=== PATIENT | female | born 1970 | race Caucasian/White ===

== ENCOUNTER 2022-05-22 12:15 | Observation (INO) | payer OTHER, SELFPAY ==
[2022-05-22] VITALS (69 sets, daily range): BP systolic 104–143; BP diastolic 61–85; PULSE 51–73; RESP 10–22; TEMP 36.6–37; O2SAT 94–99
--- NOTE | 2022-05-22 | DI.CT_ITS ---
Exam(s) CT CHEST PE CTA EXAM: CT CHEST PE CTA CLINICAL HISTORY: chest pain. TECHNIQUE: Imaging Protocol: Axial CT angiography was performed with multi-slice acquisition and mu lti-planar reconstructions as well as axial, coronal and sagittal MIP reconstructions. CONTRAST MATERIAL: Intravenous: Omnipaque 350 Contrast volume:100 ml COMPARISON: CR XR CHEST 2V PA LATERAL from 05/22/2022 FINDINGS: Pulmonary Arteries: No evidence of filling defect to suggest pulmonary emboli. Tracheobronchial tree: Patent where visualized. Small posterior upper tracheal diverticulum. Mediastinum and Ashley: No dominant adenopathy or fluid collection. Pulmonary parenchyma: No consolidation or dominant measurable mass. Pleura: No effusion or pneumothorax. Heart: The heart is not dilated. No coronary artery calcifications are seen. Aorta: Thoracic aorta non-dilated. No aneurysm. No dissection. Upper abdomen: Status post cholecystectomy. Unremarkable. Bones: Unremarkable for age. Tubes, Catheters, and Lines: None IMPRESSION: No evidence of pulmonary embolism or other acute abnormality.. RADIATION DOSE DELIVERED: 611.94mGy.cm Total DLP DATA REPOSITORY: All CT scans at this facility are submitted to the National Radiology Data Registry (NRDR) Dose Index Registry (DIR) with the [employer] (A[employer]). RADIATION OPTIMIZATION: All CT scans at this facility use at least one of these dose optimization te chniques: automated exposure control; mA and/or kV adjustment per patient size (includes targeted exa ms where dose is matched to clinical indication); or iterative reconstruction.
--- NOTE | 2022-05-22 12:15 | RT.EKG_ITS ---
APPROVED REPORT Exam: Resting ECG Reason for Exam: chest pain Patient Location: E HR:62 bpm ECG Measurements Heart Rate 62 AXIS WA 163 P 34 QRSd 88 QRS 2 QT 395 T 76 QTc 401 Conclusion Sinus rhythm...normal P axis, V-rate 60- 99
--- NOTE | 2022-05-22 12:45 | DI.RAD_ITS ---
Exam(s) XR CHEST 2V PA LATERAL EXAM: XR CHEST 2V PA LATERAL CLINICAL HISTORY: left chest pain TECHNIQUE: 2D digital imaging was performed. COMPARISON: No exams were available for comparison FINDINGS: The heart is not enlarged. The lungs are clear and well expanded. No pleural effusion seen. Mediastin al contours appear intact. IMPRESSION: Normal chest. RADIATION DOSE DELIVERED: Total DLP
--- NOTE | 2022-05-22 12:54 | ED.GENADUL_ITS ---
Discharge Plan Disposition Patient Disposition: [facility] INPATIENT Condition: Stable Discharge Details Chief Complaint: Chest Pain Clinical Impression: Chest pain Admit Date/Time: 05/22/22 17:53 Admit Provider: Mike Valdes Attending Provider: Mike Valdes Primary Care Provider: Sasha,Local ED Provider: Montez Odom Discharge Instructions Activity:: Activity as Tolerated Equipment/Supplies:: No Equipment Needed Diet:: low fat/heart healthy Discharge Orders Discharge Orders: Discharge Order (Routine); Ordered 05/23/22 Ordered By: Mike Valdes Discharge Data Discharge Date/Time-TO BE ENTERED AT DEPARTURE: 05/22/22 18:43 Medical Decision Making 1300 --51-year-old female here with left-sided chest pain that started with exertional activity and has persisted as a mild ache, with associated left arm heaviness and neck discomfort as well as nausea. Patient is hemodynamically stable. Concern for ACS. EKG was reviewed and interpreted by me: Please see report, sinus rhythm 62 bpm, no STEMI, nondiagnostic. Plan to check troponin and trend. I will give aspirin and sublingual nitroglycerin. --On reassessment, patient notes chest pain resolved. Patient notes pain was improving prior to nitroglycerin and aspirin but now is gone. -- Chest x-ray was reviewed and interpreted by radiology: Normal chest 1733 --initial troponin and delta troponin 3 hours. Normal, unchanged. Repeat EKG reviewed interpreted by me: Please see report, sinus rhythm 55 bpm, no significant change from prior EKG. Unfortunately patient has had return of chest discomfort while she has been here. She has intermittent ache in her left chest at rest. Chest pain is not reproducible with movements and not pleuritic. I am concerned about unstable angina. Plan for hospitalization for serial troponins and continue cardiac monitoring. Lab Data Lab results reviewed: Yes I reviewed the patient's lab results. Labs: Laboratory Tests Range/Units 05/22/22 05/22/22 05/22/22 12:40 12:40 13:05 WBC (4.4-10.8) 10^3/uL 5.18 RBC (3.93-5.22) 10^6/uL 4.72 Hgb (11.2-15.7) g/dL 14.7 Hct (36.0-46.0) % 40.8 MCV (80-95) fL 86 MCH (27.0-33.0) pg 31.1 MCHC (32.0-36.0) % 36.0 RDW (11.7-14.6) % 12.4 Plt Count (130-400) 10^3/uL 208 MPV (8.0-11.0) fL 11.0 Immature Gran % 0.6 Neutrophils % 50.5 Lymphocytes % 35.1 Monocytes % 6.0 Eosinophils % 6.6 Basophils % 1.2 Nucleated RBC % (0.0-0.3) % 0.0 Absolute Neutrophils (1.2-6.7) 10^3/uL 2.62 Absolute Lymphocytes (1.2-3.4) 10^3/uL 1.82 Absolute Monocytes (0.1-0.8) 10^3/uL 0.31 Absolute Eosinophils (0.0-0.7) 10^3/uL 0.34 Absolute Basophils (0.0-0.2) 10^3/uL 0.06 Sodium (136-145) mmol/L 138 Potassium (3.5-5.1) mmol/L 3.9 Chloride (98-107) mmol/L 104 Carbon Dioxide (21.0-32.0) mmol/L 27.0 Anion Gap (3-11) mmol/L 7.0 BUN (7-18) mg/dL 14 Creatinine (0.55-1.02) mg/dL 0.8 Est GFR (CKD-EPI 2020) (mL/min/1.73m2) 88.60 Glucose (74-106) mg/dL 112 H Calcium (8.5-10.1) mg/dL 9.1 Total Bilirubin (0.2-1.0) mg/dL 0.5 AST (15-37) U/L 15 ALT (14-59) U/L 25 Alkaline Phosphatase (46-116) U/L 70 Troponin I (<or=60) ng/L < 50 Total Protein (6.4-8.2) g/dL 7.4 Albumin (3.4-5.0) g/dL 4.1 COVID-19 Source Nasal/Nares SARS-CoV-2 (PCR) (Negative) Negative Range/Units 05/22/22 15:45 WBC (4.4-10.8) 10^3/uL RBC (3.93-5.22) 10^6/uL Hgb (11.2-15.7) g/dL Hct (36.0-46.0) % MCV (80-95) fL MCH (27.0-33.0) pg MCHC (32.0-36.0) % RDW (11.7-14.6) % Plt Count (130-400) 10^3/uL MPV (8.0-11.0) fL Immature Gran % Neutrophils % Lymphocytes % Monocytes % Eosinophils % Basophils % Nucleated RBC % (0.0-0.3) % Absolute Neutrophils (1.2-6.7) 10^3/uL Absolute Lymphocytes (1.2-3.4) 10^3/uL Absolute Monocytes (0.1-0.8) 10^3/uL Absolute Eosinophils (0.0-0.7) 10^3/uL Absolute Basophils (0.0-0.2) 10^3/uL Sodium (136-145) mmol/L Potassium (3.5-5.1) mmol/L Chloride (98-107) mmol/L Carbon Dioxide (21.0-32.0) mmol/L Anion Gap (3-11) mmol/L BUN (7-18) mg/dL Creatinine (0.55-1.02) mg/dL Est GFR (CKD-EPI 2020) (mL/min/1.73m2) Glucose (74-106) mg/dL Calcium (8.5-10.1) mg/dL Total Bilirubin (0.2-1.0) mg/dL AST (15-37) U/L ALT (14-59) U/L Alkaline Phosphatase (46-116) U/L Troponin I (<or=60) ng/L < 50 Total Protein (6.4-8.2) g/dL Albumin (3.4-5.0) g/dL COVID-19 Source SARS-CoV-2 (PCR) (Negative) HPI General Mode of arrival: ambulatory . Date/Time Provider Initiated Documentation: 05/22/22 12:21 . Limitations to Documentation: no limitations . Information obtained by: patient . HPI Narrative: 51-year-old female presents with chief complaint of chest pain. Patient notes she was lifting a heavy object and had 3 sharp episodes of left-sided chest pain. This occurred around 10 AM this morning. Sharp pain resolved and since the episode she has had a constant mild dull chest discomfort in her left chest. She also notes some heaviness in her left arm. She also states she had some discomfort in his left neck. No modifiers. She has associated nausea in route to the hospital. No leg swelling or calf pain. Related Data Home Medications Medication Instructions Recorded Confirmed Quynh's wort 300 mg capsule 600 mg PO HS 05/22/22 05/22/22 acetaminophen 500 mg capsule 500 mg PO Q6H PRN 05/22/22 05/22/22 cetirizine 10 mg tablet (Zyrtec) 10 mg PO HS 05/22/22 05/22/22 diphenhydramine HCl 50 mg capsule 50 mg PO QHS PRN 05/22/22 05/22/22 flaxseed oil 1,000 mg capsule 1,000 mg PO HS 05/22/22 05/22/22 guaifenesin 600 mg tablet, 600 mg PO Q12H 05/22/22 05/22/22 extended release 12 hr (Mucinex) ibuprofen 200 mg tablet (Advil) 200 mg PO Q6H PRN 05/22/22 05/22/22 multivitamin with minerals 2 tab PO QHS 05/22/22 05/22/22 (Hair,Skin and Nails tablet) Allergies Allergy/AdvReac Type Severity Reaction Status Date / Time animal dander Allergy Intermediate Other (See Unverified 05/22/22 12:54 Comment) oxycodone AdvReac Severe Nausea Unverified 05/22/22 12:54 codeine AdvReac Mild Nausea Unverified 05/22/22 12:54 Seasonal Allergy Intermediate Other (See Uncoded 05/22/22 12:54 Comment) General Stated Complaint: Chest Pain ADITHYA: 3 Review of Systems All systems reviewed & are unremarkable except as noted in HPI and below Constitutional Constitutional: Denies fever(s) Cardiovascular Cardiovascular: Reports chest pain and Denies dyspnea Respiratory Respiratory: Denies dyspnea PFSH All Active Problems (Updated 05/24/22 @ 20:33 by Montez Odom MD) Chest pain (Acute) Medical History Degenerative disc disease, lumbar Dysfunctional uterine bleeding Surgical History H/O lumbar discectomy History of endometrial ablation Family History Father Dementia Mother Pulmonary embolism Social History Smoking/Tobacco Use Status: Never Smoking risk assessment performed?: Yes Alcohol Intake: current Alcohol Intake frequency: a few times a week Alcohol type: hard liquor Drug use: Never Substance use type: does not use History History 1 Para 1 Hx # Term Pregnancies Multiple births Hx # Pregnancies Ectopic pregnancies AB induced Hx Number of Living Children AB spontaneous Exam Const General: cooperative and no acute distress HENMT Mouth: moist mucous membranes Eyes Conjunctivae: normal conjunctivae Sclera: normal sclerae Neck Neck: trachea midline and supple Chest Chest: no tenderness Resp Auscultation: clear to auscultation bilaterally, no rales, no rhonchi and no wheezes Cardio Rate: regular rate and not tachycardic Rhythm: regular rhythm Heart Sounds: no gallops, no murmurs and no rubs GI Palpation: soft, not firm, no guarding, no masses, not rigid and nontender Skin General skin exam: no rashes or lesions noted Neuro General: patient alert, patient awake and tone normal Extrem General: no calf tenderness and no edema Psych Appearance: grossly normal Mental Status: mental status grossly normal Speech and Movement: speech and movement normal Course Vital Signs Vital signs: Vital Signs Temperature 36.6 C 05/22/22 12:40 Pulse 71 05/22/22 12:40 Respiratory Rate 20 05/22/22 12:40 Blood Pressure 140/72 05/22/22 12:40 Pulse Oximetry 99 05/22/22 12:40 Temperature 36.6 C 05/22/22 12:40 Temperature Source Tympanic 05/22/22 12:40 Pulse 71 05/22/22 12:40 Respiratory Rate 16 05/22/22 12:44 Respiratory Effort Non-Labored 05/22/22 12:44 Respiratory Depth Normal 05/22/22 12:44 Respiratory Pattern Normal 05/22/22 12:44 Blood Pressure 140/72 05/22/22 12:40 Blood Pressure Position Sitting 05/22/22 12:40 Pulse Oximetry 99 05/22/22 12:40 Oxygen Delivery Method Room Air 05/22/22 12:40 Oxygen Flow Rate 0 05/22/22 12:40 Pain Level 3 05/22/22 12:40 Comment 05/22/22 12:40 PAWSS Have you Been Recently Intoxicated or Drunk Within the Last 30 days?: No Have you Ever Experienced Previous Episodes of Alcohol Withdrawal?: No Have you ever Experienced Withdrawal Seizures?: No Have you ever Experienced Delirium Tremens(DT)s?: No Have you ever undergone Alcohol Rehabilitation Treatment (i.e, inpt ot outpatient treatment programs)?: No Have you ever Experienced Blackouts?: No Have you ever Combined Alcohol with other Downers within the last 90 days?: No Have you ever Combined Alcohol with any other Substance of Abuse during the last 90 days?: No Positive Blood Alcohol level on Presentation? [PCS.BAL]: Unable to Obtain Evidence of Increased Autonomic Activity (i.e. HR>120, tremor, sweating, agitation, nausea)?: No Result: 0
[2022-05-22] MEDS: Aspirin 81 MG CHEW 324 MG CH (13:13)
[2022-05-22] MEDS: nitroGLYcerin 0.4 MG TAB SL (13:13)
[2022-05-22 13:18] LABS: Abs Immature Grans 0.03 10^3/uL (0.0-0.06); Absolute Basophil Count 0.06 10^3/uL (0.0-0.2); Absolute Eosinophil Count 0.34 10^3/uL (0.0-0.7); Absolute Lymphocyte Count 1.82 10^3/uL (1.2-3.4); Absolute Monocyte Count 0.31 10^3/uL (0.1-0.8); Absolute Neutrophil Count 2.62 10^3/uL (1.2-6.7); Basophils % 1.2; Eosinophils % 6.6; HCT 40.8 % (36.0-46.0); HGB 14.7 g/dL (11.2-15.7); Immature Grans % 0.6; Lymphocytes % 35.1; MCH 31.1 pg (27.0-33.0); MCV 86 fL (80-95); Neutrophils % 50.5; Platelet Count 208 10^3/uL (130-400); RBC 4.72 10^6/uL (3.93-5.22); RDW 12.4 % (11.7-14.6); RDW-SD 38.9 fL; WBC 5.18 10^3/uL (4.4-10.8)
[2022-05-22 13:37] LABS: ALT 25 U/L (14-59); AST 15 U/L (15-37); Albumin 4.1 g/dL (3.4-5.0); Alkaline Phosphatase 70 U/L (46-116); BUN 14 mg/dL (7-18); Bilirubin, Total 0.5 mg/dL (0.2-1.0); CREATININE 0.8 mg/dL (0.55-1.02); Calcium 9.1 mg/dL (8.5-10.1); Chloride 104 mmol/L (98-107); Glucose 112 mg/dL (74-106); Potassium 3.9 mmol/L (3.5-5.1); Sodium 138 mmol/L (136-145); Total Protein 7.4 g/dL (6.4-8.2); Troponin I < 50 ng/L (<or=60)
[2022-05-22 14:01] LABS: Source Nasal/Nares
[2022-05-22 14:03] LABS: COVID-19 PCR Negative (Negative)
--- NOTE | 2022-05-22 14:50 | NUR.NOTE ---
Nursing Note:Pts chest pain has come back slight, just a dull ache at a 1-2/10. Provider aware, vitals stable, doesn't want to do repeat nitro currently.
--- NOTE | 2022-05-22 15:45 | RT.EKG_ITS ---
APPROVED REPORT Exam: Resting ECG Reason for Exam: chest pain Patient Location: E HR:55 bpm ECG Measurements Heart Rate 55 AXIS NE 178 P 15 QRSd 82 QRS -3 QT 419 T 76 QTc 402 Conclusion Sinus bradycardia...rate< 60 Low voltage, precordial leads...precordial leads <1.0mV
[2022-05-22 16:06] LABS: Troponin I < 50 ng/L (<or=60)
--- NOTE | 2022-05-22 18:15 | W.PM.HP.N ---
Date of service: 05/22/22 Time of Service: 18:15 Assessment and Plan Assessment and plan (1) Atypical chest pain: Status: Acute Assessment and plan: Suspect that this is still some kind of musculoskeletal strain related to lifting some heavy concrete birdbath. Does not fit the pattern for ACS. She has had serial EKGs that have been negative and serial troponins have been negative. At this time I will get a CTA of her chest to rule out pulmonary embolism. Chest x-ray did not show any mediastinal widening therefore do not suspect aneurysm. If CT is negative for PE I will treat her with Toradol and we will get a stress MPI in the morning. We will get a lipid profile and glycohemoglobin A1c for restratification. If we cannot get a stress MPI in the morning we will schedule this as an outpatient and she can get it done at her local hospital in [facility]. I will also get an echocardiogram in the morning. Professional time spent interviewing and examining patient, discussion of goals of care with hospital team (care management, nursing and consulting professionals) was 45 minutes. History of Present Illness History of Present Illness Chief Complaint: Left-sided chest pain Narrative: 51-year-old female non-smoker who is in reasonably good health who has been staying up at [facility] near [facility] at their cabin with her . They were closing up the cabin for the season when they were moving a concrete birdbath and she developed sharp stabbing left-sided chest pain and dyspnea. She said she had 3 sharp episodes of pain in her left upper chest with radiation into her left side of her neck and that it took her breath away. This occurred around 1030 this morning. They waited for about an hour open that her discomfort would go away but she had a residual ache in the left side of her chest. No diaphoresis or nausea or vomiting. Patient is fairly active and plays [employer] on a regular basis with no exertional dyspnea or exertional chest pain. Couple weeks ago they admitted trip to [facility] but has had no symptoms of leg swelling or leg pain or any signs of blood clots. She has no personal history of blood clots although her mother has a history of pulmonary emboli. Patient is a non-smoker and has no history of diabetes or hypertension although she has borderline hypercholesterolemia and takes flaxseed oil. 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 Evaluation in the emergency department included serial EKGs that showed no acute ischemic changes and she has had a couple of troponin levels that have been normal. CBC and CMP were unremarkable. A D-dimer was not performed. Nasal swab for SARS-CoV-2 was negative. Patient is vaccinated she had the [employer] Fantasma vaccine with her initial vaccine was 2 years ago and she had a follow-up booster vaccine a year ago. Otherwise she has no risk factors for thromboembolic disease. As far as her risk factors for coronary artery disease they are fairly unremarkable. Her heart score is 2 which is low probability. Dr. Odom discussed with the patient and her pros and cons of discharging her home with follow-up outpatient stress MPI versus overnight admission for observation. Patient and her have chosen for overnight admission. I will get a CTA of her chest tonight to rule out pulmonary embolism as well as aneurysm as a cause. Dr. Odom try to reproduce her chest pain by palpation of her chest and her shoulder and could not reproduce it. Patient has no GERD type symptoms such as water brash or dyspepsia. Her chest pain is waxed and waned throughout the afternoon and is currently present as we speak. Although she rates it a dull ache at this time. Review of Systems All systems reviewed & are unremarkable except as noted in HPI and below Constitutional Constitutional: Reports as per HPI Cardiovascular Cardiovascular: Reports as per HPI Respiratory Respiratory: Reports as per HPI Gastrointestinal Gastrointestinal: Denies abdominal pain, Denies belching, Denies dyspepsia and Denies heartburn PFSH All Active Problems (Updated 05/22/22 @ 18:56 by Mike Valdes MD) Atypical chest pain (Acute) Medical History (Updated 05/22/22 @ 18:56 by Mike Valdes MD) Degenerative disc disease, lumbar Dysfunctional uterine bleeding Surgical History (Updated 05/22/22 @ 18:53 by Mike Valdes MD) H/O lumbar discectomy History of endometrial ablation Family History (Updated 05/22/22 @ 18:54 by Mike Valdes MD) Father Dementia Mother Pulmonary embolism Social History Smoking/Tobacco Use Status: Never Smoking risk assessment performed?: Yes Alcohol Intake: current Alcohol Intake frequency: a few times a week Alcohol type: hard liquor Drug use: Never Substance use type: does not use History History 1 Para 1 Hx # Term Pregnancies Multiple births Hx # Pregnancies Ectopic pregnancies AB induced Hx Number of Living Children AB spontaneous Meds Allergies and Home Medications Allergies Allergy/AdvReac Type Severity Reaction Status Date / Time animal dander Allergy Intermediate Other (See Unverified 05/22/22 12:54 Comment) oxycodone AdvReac Severe Nausea Unverified 05/22/22 12:54 codeine AdvReac Mild Nausea Unverified 05/22/22 12:54 Seasonal Allergy Intermediate Other (See Uncoded 05/22/22 12:54 Comment) Home Medications Medication Instructions Recorded Confirmed Type Quynh's wort 300 mg capsule 600 mg PO HS 05/22/22 05/22/22 History acetaminophen 500 mg capsule 500 mg PO Q6H PRN 05/22/22 05/22/22 History cetirizine 10 mg tablet (Zyrtec) 10 mg PO HS 05/22/22 05/22/22 History diphenhydramine HCl 50 mg capsule 50 mg PO QHS PRN 05/22/22 05/22/22 History flaxseed oil 1,000 mg capsule 1,000 mg PO HS 05/22/22 05/22/22 History guaifenesin 600 mg tablet, 600 mg PO Q12H 05/22/22 05/22/22 History extended release 12 hr (Mucinex) ibuprofen 200 mg tablet (Advil) 200 mg PO Q6H PRN 05/22/22 05/22/22 History multivitamin with minerals 2 tab PO QHS 05/22/22 05/22/22 History (Hair,Skin and Nails tablet) Exam Narrative Exam Narrative: Pleasant middle-aged female sitting in the emergency department talking with her . She is not in any acute respiratory distress. HEENT is unremarkable Neck supple nontender no JVD normal carotid pulses no bruits no thyromegaly Lungs are clear to auscultation Heart is regular rate and rhythm no murmur rub or gallop Chest wall is nontender to palpation Abdomen is obese soft and nontender Lower extremities without peripheral cyanosis or edema no calf tenderness no Homans' sign. Neurologic exam grossly intact without focal motor or sensory deficits Results Labs Result diagrams: 05/22/22 12:40 05/22/22 12:40 Labs: Laboratory Results - last 24 hr 05/22/22 05/22/22 05/22/22 12:40 12:40 13:05 WBC 5.18 RBC 4.72 Hgb 14.7 Hct 40.8 MCV 86 MCH 31.1 MCHC 36.0 RDW 12.4 Plt Count 208 MPV 11.0 Immature Gran % 0.6 Neutrophils % 50.5 Lymphocytes % 35.1 Monocytes % 6.0 Eosinophils % 6.6 Basophils % 1.2 Nucleated RBC % 0.0 Absolute Neutrophils 2.62 Absolute Lymphocytes 1.82 Absolute Monocytes 0.31 Absolute Eosinophils 0.34 Absolute Basophils 0.06 Sodium 138 Potassium 3.9 Chloride 104 Carbon Dioxide 27.0 Anion Gap 7.0 BUN 14 Creatinine 0.8 Est GFR (CKD-EPI 2020) 88.60 Glucose 112 H Calcium 9.1 Total Bilirubin 0.5 AST 15 ALT 25 Alkaline Phosphatase 70 Troponin I < 50 Total Protein 7.4 Albumin 4.1 COVID-19 Source Nasal/Nares SARS-CoV-2 (PCR) Negative 05/22/22 15:45 WBC RBC Hgb Hct MCV MCH MCHC RDW Plt Count MPV Immature Gran % Neutrophils % Lymphocytes % Monocytes % Eosinophils % Basophils % Nucleated RBC % Absolute Neutrophils Absolute Lymphocytes Absolute Monocytes Absolute Eosinophils Absolute Basophils Sodium Potassium Chloride Carbon Dioxide Anion Gap BUN Creatinine Est GFR (CKD-EPI 2020) Glucose Calcium Total Bilirubin AST ALT Alkaline Phosphatase Troponin I < 50 Total Protein Albumin COVID-19 Source SARS-CoV-2 (PCR) Last Vital Signs Temp 36.6 C 05/22/22 12:40 Pulse 63 05/22/22 17:45 Resp 10 L 05/22/22 17:50 BP 125/69 05/22/22 17:45 Pulse Ox 95 05/22/22 17:50 PAWSS Have you Been Recently Intoxicated or Drunk Within the Last 30 days?: No Have you Ever Experienced Previous Episodes of Alcohol Withdrawal?: No Have you ever Experienced Withdrawal Seizures?: No Have you ever Experienced Delirium Tremens(DT)s?: No Have you ever undergone Alcohol Rehabilitation Treatment (i.e, inpt ot outpatient treatment programs)?: No Have you ever Experienced Blackouts?: No Have you ever Combined Alcohol with other Downers within the last 90 days?: No Have you ever Combined Alcohol with any other Substance of Abuse during the last 90 days?: No Positive Blood Alcohol level on Presentation? [PCS.BAL]: Unable to Obtain Evidence of Increased Autonomic Activity (i.e. HR>120, tremor, sweating, agitation, nausea)?: No Result: 0
[2022-05-22] MEDS: Ketorolac 30 MG/ML VIAL IVP (19:54)
[2022-05-22] MEDS: LORazepam 2 MG/ML VIAL 0.5 MG IVP (19:54)
[2022-05-22] MEDS: Enoxaparin 40 MG/0.4 ML SYR SC (19:54)
[2022-05-22] MEDS: Normal Saline Flush 10 ML SYR IVP (19:55)
[2022-05-22] MEDS: Omnipaque 350 MG/ML 100 ML BTL IJ (20:17)
--- NOTE | 2022-05-22 20:29 | DI.VRAD_ITS ---
PROCEDURE INFORMATION: Exam: CTA Chest With Contrast Exam date and time: 05/22/2022 8:10 PM Age: 51 years old Clinical indication: Other: Not specified; Patient HX: Chest pain TECHNIQUE: Imaging protocol: Computed tomographic angiography of the chest with contrast. 3D rendering (Not supervised by radiologist): MIP and/or 3D reconstructed images were created by the technologist. COMPARISON: CR XR CHEST 2V PA LATERAL 05/22/2022 1:37 PM FINDINGS: Pulmonary arteries: No pulmonary embolism identified. Aorta: No thoracic aortic aneurysm or dissection. Thyroid: Thyroid gland partially excluded from view but grossly unremarkable through its visualized portion. Trachea: Small right posterior tracheal diverticula, images 61-69 of series 7. Lungs: No pulmonary consolidation. Pleural spaces: No pleural effusion or pneumothorax. Heart: Normal sized heart. Lymph nodes: Scattered small mediastinal lymph nodes, nonspecific. Bones/joints: Lower ribs partially excluded from view and incompletely evaluated. Otherwise, no acute fracture seen among the bones of the chest. Soft tissues: No gross soft tissue mass or fluid collection seen in the chest wall. IMPRESSION: No active disease is seen in the chest. Dictated and Authenticated by: Erwin Manning MD. Ordering:[facility] Lucio Mckeon MD
[2022-05-22 20:49] LABS: Troponin I < 50 ng/L (<or=60)
[2022-05-23 00:12] VITALS: BP 147/78; PULSE 62; RESP 16; TEMP 36.4; O2SAT 97
[2022-05-23 03:29] VITALS: BP 135/80; PULSE 58; RESP 16; TEMP 36.5; O2SAT 100
[2022-05-23 06:30] LABS: Hemoglobin A1C 4.9 % (<5.7)
[2022-05-23 06:31] LABS: Calculated LDL 150 mg/dL (<100); Cholesterol 234 mg/dL (<200); HDL Cholesterol 42 mg/dL (40-60); Triglyceride 213 mg/dL (<150)
--- NOTE | 2022-05-23 07:00 | DI.NM_ITS ---
APPROVED REPORT Exam: Exercise Treadmill Patient Location: In-Patient Room/Bed: 215 Stress Nurse: Caroline Hoffman RN Ordering Provider:DAVINA DALLAS, Contact Number: BMI: 30.66 Baseline Rhythm: Sinus Bradycardia Indications: CHEST PAIN Medical History Medical History: HLD Cardiac Medications: None Allergies: Oxycodone, Codeine, Seasonal Cardiac Risk Factors: Hyperlipidemia Previous Cardiac Procedures: None Pretest Chest Pain Characteristics: None Exercise History: Physically active Physical Disabilities: None Lung Sounds: Clear to auscultation Heart Sounds: Regular Stress Test Details Test: Exercise stress testing was performed using a Nick protocol. Nuclear Acquisition: Rest Tc-99m/Stress Tc-99m 1 day Rest Isotope: Tc-99m Sestamibi. Dose: 9.5 Date: 05/23/2022 Injection Time: 1230 Stress Isotope: Tc-99m Sestamibi. Dose: 30.0 Date: 05/23/2022 Injection Time: 1425 HR Resting HR Supine: 57 bpm Max Heart Rate (APMHR): 168.715696 bpm Resting HR Standin bpm Target HR (85% APMHR): 142.696730 bpm Max HR Achieved: 156 bpm % of APMHR: 92.86 Recovery HR: 72 bpm HR response to stress: Normal HR response to stress BP Resting BP Supine: 130/82 mmHg Resting BP Standin/86 mmHg Max BP: 180/86 mmHg Recovery BP: 138/78 mmHg BP response to stress: Normal blood pressure response to stress. ECG Resting ECG: Sinus Bradycardia Ectopy: None Stress ECG: Sinus Tachycardia ST Change: No significant ST segment changes noted Arrhythmia: occasional PVC Recovery ECG: Sinus Rhythm Recovery ST Change: No significant ST segment changes noted Recovery Arrhythmia: occasional PVC Clinical Reason for Termination: Dyspnea Stress Symptoms: Dyspnea Exercise duration: 11 min06 sec Highest Stage Reached: Stage 4: 4.2 mph at 16% grade. Exercise capacity: 13.48 METs Beard Treadmill Score: 9.1 Rate Pressure Product: 13825 Stress ECG Conclusion 1. Resting electrocardiogram was within normal limits 2. Patient exercised on the Nick protocol and completed a workload of 13.48 METS 3. Normal heart rate and blood pressure response to exercise. The patient achieved 92% of predicted heart rate for age 4. The electrocardiographic portion of the test was negative for myocardial ischemia 5. There were no significant dysrhythmias 6. See MPI report Beard Treadmill Score is 9.1 which is Low risk. Stress Test Summary STAGE Time (mins) Speed (mph) Grade (%) HR BP SpO2 SYMPTOMS METS Supine 57 130/82 Standing 60 140/86 98 1 3 1.7 10 87 152/78 4.5 2 6 2.5 12 105 154/76 98 7 3 9 3.4 14 126 160/82 10 1 min recovery 117 180/86 98 3 min recovery 77 168/70 6 min recovery 72 138/78 MPI Conclusion Myocardial perfusion is normal. There is no evidence of ischemia or prior infarction EF 68%, normal wall motion Radiologist Interpretation Radiologist agrees with Database Administrator's Interpretation. Radiologist Interpretation by: Adriana Schroeder MD Interpretation Date/Time: 05/23/2022 16:09:48
[2022-05-23 07:01] VITALS: PULSE 66
[2022-05-23 07:25] VITALS: BP 133/75; PULSE 55; RESP 14; TEMP 36.4; O2SAT 96
--- NOTE | 2022-05-23 08:00 | DI.US_ITS ---
APPROVED REPORT EXAM: Comprehensive 2D, Doppler, and color-flow Echocardiogram Patient Location: In-Patient Room/Bed: 215 Integrity Manager: Niki Peter RDCS (AE) Indications: Chest pain Other Information Study Quality: Adequate Conclusion Normal left ventricular wall thickness and chamber size. Estimated ejection fraction is 60%. Wall m otion is normal Normal right ventricular size and systolic function Both atria are normal in size There is no structural or hemodynamically significant valvular disease Mildly dilated ascending aorta measuring 3.45 cm Estimated right ventricular systolic pressure is 16 mmHg Wall motion Left Ventricle The left ventricle is normal size. The left ventricular systolic function is normal. The left ventric ular ejection fraction is within the normal range. There is normal left ventricular wall thickness. T here is normal LV segmental wall motion. There is no ventricular septal defect visualized. LVEF is 60 %. Right Ventricle The right ventricle is normal size. The right ventricular systolic function is normal. Atria The left atrium size is normal. The right atrium size is normal. The interatrial septum is intact wit h no evidence for an atrial septal defect. Aortic Valve The aortic valve is normal in structure. There is no aortic valvular stenosis. No aortic regurgitatio n is present. Mitral Valve The mitral valve is normal in structure. No evidence of mitral valve stenosis. Mild mitral regurgitat ion. Tricuspid Valve The tricuspid valve is normal in structure. There is no tricuspid valve stenosis. Trace tricuspid reg urgitation. Pulmonic Valve The pulmonary valve is normal in structure. There is no pulmonic valvular stenosis. There is no pulmo amos valvular regurgitation. Great Vessels The aortic root is normal in size. The ascending aorta is mildly dilated. Aortic arch is normal in ca liber. IVC is normal in size and collapses >50% with inspiration. Pericardium There is no pericardial effusion. 2D Dimensions IVSD d PLAX 0.87 cm F: 0.6-1.0 LV Vol A2C d MOD 89.3 mL LVPW d PLAX 0.88 cm F: 0.6 - 1.0 LV Vol A4C d MOD 113.7 mL LVID d PLAX 4.54 cm F: 3.8 - 5.2 LA vol/ BSA A2C s A-L 32.5 mL/m2 LVDs 3.10 cm F: 2.2 - 3.5 LA vol/ BSA A4C s A-L 19.7 mL/m2 Ao Root d 3.00 cm F: 2.7 - 3.3 LA Vol/ BSA Biplane s A-L 26.2 mL/m2 RA Area A4C 12.80 cm2 LA Area A4C s MOD 15.03 cm2 RA Vol/ BSA A4C s A-L 15.9 mL/m2 LA Area A2C s MOD 19.99 cm2 Ao Asc Diam d 3.45 cm F: 2.3 - 3.1 LV EF A4C MOD 60.5 % LV EF Teichholz 58.5 % LV EF A2C MOD 60.0 % LVEF (Monroy's) 60.50 % F: 54 - 74 LV EF Biplane MOD 60.5 % LV Volume 76.46 mL F: 46 - 106 SV 61.23 mL LV Volume Index 39.21 mL/m2 F: 29 - 61 SV Index 31.28 mL/m2 LV Vol Biplane MOD 101.2 mL FS 30.75 % M-Mode TAPSE 2.24 cm (M/F) >1.7 LV Diastology MV E' medial 0.089 (>0.07 m/s) E/A Ratio 0.7 LV E/e MED 6.15 (<14) MV E Vmax 0.55 (0.4-1.3 m/s) MV E' lateral 0.086 (>0.1 m/s) MV A Vmax 0.75 (0.4-1.3 m/s) LV E/e LAT 6.40 (<14) MV E/A Ratio 0.70 MV E/E' medial 6.16 MV E/E' lateral 6.42 Aortic Valve LVOT Area 3.62 cm2 AoV Area Vmax 2.95 cm2 LVOT Vmax 1.08 m/s AoV Area/ BSA (Vmax) 1.51 cm2/m2 LVOT Mean Josiah. 0.68 m/s JAYNE Mean Josiah. 2.64 cm2 LVOT Peak Grad 4.7 mmHg JAYNE Mean Josiah. Index 1.35 cm2/m2 LVOT Mean Grad 2.2 mmHg LVOT VTI 0.258 m LVOT Diam s 2.10 cm AoV Vmax 1.33 m/s Velocity Ratio 0.81 AoV Mean Josiah. 0.93 m/s AoV Peak Grad 7.1 mmHg LVOT SV 93.29 mL AoV Mean Grad 3.9 mmHg AoV VTI 0.315 m AoV Area VTI 2.96 cm2 AoV Area/ BSA (VTI) 1.51 cm/m2 Mitral Valve MV DT 247 (160-240 msec) MV PHT 72 msec MV Area PHT 3.07 cm2 Pulmonary Valve PV Vmax 0.82 (0.5-1.5 m/s) RVOT Peak Gr. 1.48 mmHg PV Peak Grad 2.7 mmHg RVOT Mean Gr. 0.70 mmHg PV Mean Grad 1.4 mmHg RVOT VTI 0.148 m PV VTI 0.169 m RVOT Vmax 0.61 m/s Tricuspid Valve TR Peak Grad 12.6 mmHg TR Vmax 1.78 m/s RA Pressure 3.00 mmHg RVSP (TR) 15.7 mmHg
--- NOTE | 2022-05-23 10:28 | W.PM.PROGNOT ---
Date of Service Date of service: 05/23/22 Time of Service: 10:28 Assessment and Plan Assessment and plan (1) Atypical chest pain: Status: Acute Assessment and plan: no ischemic EKG changes and negative troponin I levels; negative CTA chest; will check echo results and GXT/MPI stress test today; plan for dc home this afternoon if GXT goes well. Subjective Subjective Interval history since last seen: No further CP or dyspnea overnight. She is eager to be discharged home. Echo has been done. GXT/MPI set for noon. Exam Narrative Exam Narrative: alert and oriented, walking about the room Lungs: clear Heart: RRR w/o rub, murmur or gallop Objective Last Vital Signs Temp 36.4 C L 05/23/22 07:25 Pulse 55 L 05/23/22 07:25 Resp 14 05/23/22 07:25 BP 133/75 05/23/22 07:25 Pulse Ox 96 05/23/22 07:25 Laboratory Results - last 24 hr 05/22/22 05/22/22 05/22/22 12:40 12:40 13:05 WBC 5.18 RBC 4.72 Hgb 14.7 Hct 40.8 MCV 86 MCH 31.1 MCHC 36.0 RDW 12.4 Plt Count 208 MPV 11.0 Immature Gran % 0.6 Neutrophils % 50.5 Lymphocytes % 35.1 Monocytes % 6.0 Eosinophils % 6.6 Basophils % 1.2 Nucleated RBC % 0.0 Absolute Neutrophils 2.62 Absolute Lymphocytes 1.82 Absolute Monocytes 0.31 Absolute Eosinophils 0.34 Absolute Basophils 0.06 Sodium 138 Potassium 3.9 Chloride 104 Carbon Dioxide 27.0 Anion Gap 7.0 BUN 14 Creatinine 0.8 Est GFR (CKD-EPI 2020) 88.60 Glucose 112 H Hemoglobin A1c Calcium 9.1 Total Bilirubin 0.5 AST 15 ALT 25 Alkaline Phosphatase 70 Troponin I < 50 Total Protein 7.4 Albumin 4.1 Triglycerides Total Cholesterol LDL Cholesterol, Calc HDL Cholesterol COVID-19 Source Nasal/Nares SARS-CoV-2 (PCR) Negative 05/22/22 05/22/22 05/23/22 15:45 20:25 05:44 WBC RBC Hgb Hct MCV MCH MCHC RDW Plt Count MPV Immature Gran % Neutrophils % Lymphocytes % Monocytes % Eosinophils % Basophils % Nucleated RBC % Absolute Neutrophils Absolute Lymphocytes Absolute Monocytes Absolute Eosinophils Absolute Basophils Sodium Potassium Chloride Carbon Dioxide Anion Gap BUN Creatinine Est GFR (CKD-EPI 2020) Glucose Hemoglobin A1c Calcium Total Bilirubin AST ALT Alkaline Phosphatase Troponin I < 50 < 50 Total Protein Albumin Triglycerides 213 H Total Cholesterol 234 H LDL Cholesterol, Calc 150 H HDL Cholesterol 42 COVID-19 Source SARS-CoV-2 (PCR) 05/23/22 05:44 WBC RBC Hgb Hct MCV MCH MCHC RDW Plt Count MPV Immature Gran % Neutrophils % Lymphocytes % Monocytes % Eosinophils % Basophils % Nucleated RBC % Absolute Neutrophils Absolute Lymphocytes Absolute Monocytes Absolute Eosinophils Absolute Basophils Sodium Potassium Chloride Carbon Dioxide Anion Gap BUN Creatinine Est GFR (CKD-EPI 2020) Glucose Hemoglobin A1c 4.9 Calcium Total Bilirubin AST ALT Alkaline Phosphatase Troponin I Total Protein Albumin Triglycerides Total Cholesterol LDL Cholesterol, Calc HDL Cholesterol COVID-19 Source SARS-CoV-2 (PCR) Reviewed Pertinent PMH: Yes Objective Narrative Objective Narrative: CTA chest showed no acute abnormalities PAWSS Have you Been Recently Intoxicated or Drunk Within the Last 30 days?: No Have you Ever Experienced Previous Episodes of Alcohol Withdrawal?: No Have you ever Experienced Withdrawal Seizures?: No Have you ever Experienced Delirium Tremens(DT)s?: No Have you ever undergone Alcohol Rehabilitation Treatment (i.e, inpt ot outpatient treatment programs)?: No Have you ever Experienced Blackouts?: No Have you ever Combined Alcohol with other Downers within the last 90 days?: No Have you ever Combined Alcohol with any other Substance of Abuse during the last 90 days?: No Positive Blood Alcohol level on Presentation? [PCS.BAL]: Unable to Obtain Evidence of Increased Autonomic Activity (i.e. HR>120, tremor, sweating, agitation, nausea)?: No Result: 0
[2022-05-23] MEDS: Normal Saline Flush 10 ML SYR IVP (10:31)
[2022-05-23 11:12] VITALS: BP 109/69; PULSE 58; RESP 14; TEMP 36.4; O2SAT 97
[2022-05-23] MEDS: Acetaminophen 325 MG TAB PO (13:05)
[2022-05-23 15:15] VITALS: PULSE 83
--- NOTE | 2022-05-23 15:26 | DSE_ITS ---
Date of service: 05/23/22 Time of Service: 15:27 DS: Diagnosis Discharge Diagnosis (1) Atypical chest pain: Status: Acute Asessment and Plan: see admission H&P and ED notes for details. Patient had CP throughout the day waxing and waning on the day of admission w/ normal serial tropon I levels, no ischemic ST-T changes and normal CTA of the chest. Patient's pain resolved ketorolac. She had echocardiogram which was normal and GXT stress MPI which was normal. Her lipid level was checked and she was found to have high total cholesterol of 234 , LDL 150, and triglycerides of 213. Her hemoglobin A1c was normal at 4.9%. She is advised to follow a Mediterranean diet of low saturated fat intake and discuss further management of her lipids w/ her PCP. Discharge Plan Disposition Patient Disposition: HOME Condition: Good Discharge Details Reason For Visit: Chest Pain Admit Date/Time: 05/22/22 17:53 Admit Provider: Mike Valdes Attending Provider: Mike Valdes [facility] Hospital Course: 51-year-old female non-smoker who is in reasonably good health who has been staying up at [facility] at their cabin with her .? They were closing up the cabin for the season when they were moving a concrete birdbath and she developed sharp stabbing left-sided chest pain and dyspnea.? She said she had 3 sharp episodes of pain in her left upper chest with radiation into her left side of her neck and that it took her breath away.? This occurred around 1030 this morning.? They waited for about an hour open that her discomfort would go away but she had a residual ache in the left side of her chest.? No diaphoresis or nausea or vomiting.? Patient is fairly active and plays pickle ball on a regular basis with no exertional dyspnea or exertional chest pain.? Couple weeks ago they admitted trip to [facility] but has had no symptoms of leg swelling or leg pain or any signs of blood clots.? She has no personal history of blood clots although her mother has a history of pulmonary emboli.? Patient is a non-smoker and has no history of diabetes or hypertension although she has borderline hypercholesterolemia and takes flaxseed oil.? 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 Evaluation in the emergency department included serial EKGs that showed no acute ischemic changes and she has had a couple of troponin levels that have been nor mal. CBC and CMP were unremarkable.? A D-dimer was not performed.? Nasal swab for SARS-CoV-2 was negative.? Patient is vaccinated she had the Fantasma [employer] Fantasma vaccine with her initial vaccine was 2 years ago and she had a follow-up booster vaccine a year ago.? Otherwise she has no risk factors for thromboembolic disease.? As far as her risk factors for coronary artery disease they are fairly unremarkable.? Her heart score is 2 which is low probability.? Dr. Odom discussed with the patient and her pros and cons of discharging her home with follow-up outpatient stress MPI versus overnight admission for observation.? Patient and her have chosen for overnight admission.? I will get a CTA of her chest tonight to rule out pulmonary embolism as well as aneurysm as a cause.? Dr. Odom try to reproduce her chest pain by palpation of her chest and her shoulder and could not reproduce it.? Patient has no GERD type symptoms such as water brash or dyspepsia.? Her chest pain is waxed and waned throughout the afternoon and is currently present as we speak.? Although she rates it a dull ache at this time. Patient had serial troponin I levels measured which all came back normal. CTA of chest was normal. She had echocardiogram and GXT MPI stress test done and both were normal. She had no further chest pain/pressure or dyspnea. She was discharged in good condition. Fasting lipid profile was done and glycohemoglobin A1c were done for primary risk factor evaluation. Glycohemoglobin A1c was 4.9%. Total cholesterol was high at 234 and LDL is high at 150, w/ HDL 42 and trigly cerides of 213.Based on 2013 ACC/AHA calculator for ASCVD, she has 2.3% 10 yr risk of developing ASCVD. Patient should be following low saturated fat diet, consideration for use of statin if she is unable to achieve goal lipid levels (total cholesterol <200 LDL <100). No medications were changed. Follow up w/ her PCP to discuss lipid management. Home Meds and New Rx's Prescriptions: Continued diphenhydramine HCl 50 mg Capsule 50 mg PO QHS PRN cetirizine [Zyrtec] 10 mg Tablet 10 mg PO HS flaxseed oil 1,000 mg Capsule 1,000 mg PO HS Rx Instructions: administer with a meal ibuprofen [Advil] 200 mg Tablet 200 mg PO Q6H PRN Hair,Skin and Nails Tablet 2 tab PO QHS Label Comments: It Works is the name of the actual supplement acetaminophen 500 mg Capsule 500 mg PO Q6H PRN Southgate's wort 300 mg Capsule 600 mg PO HS guaifenesin [Mucinex] 600 mg Tablet Extended Release 12hr 600 mg PO Q12H Discharge Instructions Instructions: Low Fat Diet (ED), Heart Healthy Diet (DC), Hyperlipidemia (DC) Additional Instructions: Your stress test and echocardiogram were normal. Your lipid profile showed high LDL and total cholesterol are high. You should discuss diet and/or medication management w/ your primary care provider. Activity:: Activity as Tolerated Equipment/Supplies:: No Equipment Needed Diet:: low fat/heart healthy Discharge Orders Discharge Orders: Discharge Order (Routine); Ordered 05/23/22 Ordered By: Mike Valdes DS: Summary Time Spent with Patient providing and/or coordinating discharge services: Less than 30 minutes Specific discharge activities: Interview/exam of patient; review of discharge instructions, completion of prescriptions/discharge instructions; discussion w/ nursing and CM; documentation of hospital visit Status at Discharge Functional status at discharge: independent ambulation Overall status at discharge: patient is back to baseline Mental Status: mental status grossly normal Speech and Movement: speech and movement normal Mood: congruent mood Affect: normal affect Exam Narrative Exam Narrative: alert and oriented, walking about the room Lungs: clear Heart: RRR w/o rub, murmur or gallop Psych Mental Status: mental status grossly normal Speech and Movement: speech and movement normal Mood: congruent mood Affect: normal affect DS: Data Vitals/I&O Vitals and I&O: Vital Signs Temperature 36.4 C L 05/23/22 11:12 Temperature Source Tympanic 05/23/22 11:12 Pulse 58 L 05/23/22 11:12 Pulse Rhythm Regular 05/23/22 07:45 Pulse 65 05/22/22 18:31 Respiratory Rate 14 05/23/22 11:12 Respiratory Effort Non-Labored 05/23/22 07:45 Respiratory Depth Normal 05/23/22 07:45 Respiratory Pattern Normal 05/23/22 07:45 Blood Pressure 109/69 05/23/22 11:12 Blood Pressure Mean 82 05/22/22 18:30 Blood Pressure Position Sitting 05/22/22 12:40 Pulse Oximetry 97 05/23/22 11:12 Oxygen Delivery Method Room Air 05/23/22 11:12 Oxygen Flow Rate 0 05/23/22 11:12 Pain Level 5 05/23/22 13:10 Comment 05/22/22 12:40 Intake & Output 05/22/22 05/23/22 05/23/22 23:59 11:59 23:59 Intake Total 480 / 480 Balance 480 / 480 Weight 86.183 kg Intake: Oral 480 / 480 Other: Urine Color Pale Yellow Urine Appearance Clear Clear Urine Odor Normal Comment voids independently in the toilet patient states no urinary issues. Voiding Methods Toilet Data Completed and Pending Completed studies during hospitalization [Text1]: CTA chest, echocardiogram, stress MPI Pending studies at discharge: none Labs on day of discharge: Labs from last 24 hours 05/23/22 05/23/22 05/22/22 05:44 05:44 20:25 Hemoglobin A1c 4.9 Troponin I < 50 Triglycerides 213 H Total Cholesterol 234 H LDL Cholesterol, Calc 150 H HDL Cholesterol 42 05/22/22 15:45 Hemoglobin A1c Troponin I < 50 Triglycerides Total Cholesterol LDL Cholesterol, Calc HDL Cholesterol PFSH All Active Problems Atypical chest pain (Acute) Medical History Degenerative disc disease, lumbar Dysfunctional uterine bleeding Surgical History H/O lumbar discectomy History of endometrial ablation Family History Father Dementia Mother Pulmonary embolism Social History Smoking/Tobacco Use Status: Never Smoking risk assessment performed?: Yes Alcohol Intake: current Alcohol Intake frequency: a few times a week Alcohol type: hard liquor Drug use: Never Substance use type: does not use History History 1 Para 1 Hx # Term Pregnancies Multiple births Hx # Pregnancies Ectopic pregnancies AB induced Hx Number of Living Children AB spontaneous
--- NOTE | 2022-05-23 19:40 | NUR.NOTE ---
Nursing Note: I have read and approved of the documentation of Lauren Moncada LPN
== END 2022-05-23 16:06 | disposition home or self-care (01) ==
LOC: ER 18:00 → MS 18:46
PROVIDERS: Admitting Provider Internal Medicine; Emergency Provider Student in an Organized Health Care Education/Training Program; Visit Provider Internal Medicine
DX: R07.89 Other chest pain (principal); R06.00 Dyspnea, unspecified; Z79.899 Other long term (current) drug therapy; R11.0 Nausea; Z20.822 Contact with and (suspected) exposure to COVID-19; E78.5 Hyperlipidemia, unspecified
CPT/HCPCS: 36415; 71275; 78452; 80053; 80061; 87635; 93005; 96372; 96374; 96375; 99285; J1650; 71046; 83036; 84484; 85025; 93010; 93017; 93306; 99217; 99219; G0378; J1885; J2060; J3490